=== PATIENT | male | born 1970 ===

== ENCOUNTER → 2021-10-09 | Outpatient (CLI) | payer BC ==
--- NOTE | 2021-10-09 14:20 | CT ---
EXAMINATION TYPE: CT sinus wo con DATE OF EXAM: 10/09/2021 COMPARISON: None available HISTORY: Chronic rhinitis CT DLP: 603 mGycm. Automated Exposure Control for Dose Reduction was Utilized. TECHNIQUE: CT scan of the sinuses is performed without contrast, axial images are obtained, coronal r eformatted images are also reviewed. FINDINGS: Slightly deviated bony nasal septum convex to the left side. Paradoxical middle turbinates. Pneumatiz ed vertical lamella bilaterally. No significant mucosal thickening of the nasal fossa bilaterally. Ob structed right infundibulum by mucosal thickening. Patent left infundibulum. Clear ostiomeatal complex bilaterally. Small maxillary sinuses. Complete opacification of the right m axillary sinus by mucosal thickening. Central hyperdensity seen within the right maxillary sinus whic h could represent inspissated secretion however fungal infection cannot be excluded. Clear left maxillary sinus, frontal sinus, ethmoid air cells and sphenoid sinus. Patent sphenoethmoid al recesses. Hypopneumatized mastoid air cells with opacified left mastoid air cells and left middle ear cavity suggestive of left otomastoiditis. Unremarkable visualized portion of the brain and orbits . IMPRESSION: Chronic right maxillary sinusitis as detailed above. Clear remainder of the paranasal sinuses. Questi onable left otomastoiditis, please correlate clinically. Other findings as described above.
--- NOTE | 2021-10-09 14:59 | USB ---
Reason for Exam: Clinical finding. Baseline mammogram. Indicated Problems: Lump or thickening of the left side for 2 Year(s). Prior Study Comparison: Patient's first Mammogram. No prior studies available for comparison. Tissue Density: The breast tissue is almost entirely fat. Findings: Analyzed By CAD. Mammogram There is fatty breast without significant parenchymal tissue. No gynecomastia is evident. A left breast outer palpable abnormality is marked. No discrete mammographic abnormality is evident within this region. Ultrasound is recommended.. Technique: Method: Whole Breast Handheld. Findings: The whole breast of the left breast, the axilla of the left breast and the retroareolar of the left breast were scanned. There is a 0.9 x 1.4 x 0.7 cm hyperechoic oval with smooth margins within the subcutaneous tissues at the level marked by the BB. Findings could be compatible with a lipoma. Clinical management is recommended. Overall Assessment: Probably benign, BI-RAD 3 Assessment: MG diagnostic mammo w CAD MICHELL - Bilateral: Probably benign, BI-RAD 3 - Left. US breast LT - Left: Probably benign, BI-RAD 3. Management: Diagnostic Breast Ultrasound of the left breast in 6 months. A clinical breast exam by your physician is recommended on an annual basis and results should be correlated with mammographic findings. Results were given to the patient verbally at the time of exam. Clinical management. Diagnostic imaging can be performed for changing clinical findings. Electronically signed and approved by: Randall Molina D.O. Radiologis
== END | disposition home or self-care (01) ==
LOC: RADCTMAIN 13:25 → MERGE 14:40
PROVIDERS: ATTEND Family Medicine
DX: N63.23 Unspecified lump in the left breast, lower outer quadrant (principal); J32.9 Chronic sinusitis, unspecified; R92.8 Other abnormal and inconclusive findings on diagnostic imaging of breast
CPT/HCPCS: 70486; 77066